=== PATIENT | female | born 1960 | race Caucasian/White ===

== ENCOUNTER 2017-08-25 08:26 | Day surgery (SDC) | payer BC ==
[2017-08-25] MEDS ORDERED: FENTAnyl 50 MCG/ML VIAL (11:25)
[2017-08-25] MEDS ORDERED: MIDAZOLAM 1 MG/ML 2 ML INJ (11:25)
[2017-08-25] MEDS ORDERED: ONDANSETRON 4 MG INJ (11:54)
[2017-08-25] MEDS ORDERED: LIDOCAINE 2% (SDV) 5 ML INJ (11:54)
[2017-08-25] MEDS ORDERED: PROPOFOL 20 ML (11:54)
[2017-08-25] MEDS ORDERED: ONDANSETRON 4 MG INJ IV (12:30)
[2017-08-25] MEDS ORDERED: HYDROmorphONE (0.2 MG/ML) 10ML SYG IV ×2 (12:30)
[2017-08-25] MEDS ORDERED: FENTAnyl 50 MCG/ML VIAL IV (12:30)
[2017-08-25] MEDS ORDERED: MEPERIDINE 25 MG INJ IV (12:30)
[2017-08-25] MEDS ORDERED: DIPHENHYDRAMINE 50 MG INJ IV (12:30)
[2017-08-25] MEDS ORDERED: ACETAMINOPHEN 650MG/20.3ML CUP PO (13:00)
== END 2017-08-25 14:00 | disposition home or self-care (01) ==
LOC: SDS 08:26
DX: H65.22 Chronic serous otitis media, left ear (principal); E78.5 Hyperlipidemia, unspecified; I10 Essential (primary) hypertension; E66.9 Obesity, unspecified; Z68.30 Body mass index [BMI] 30.0-30.9, adult
CPT/HCPCS: 69436